=== PATIENT | female | born 1995 | race Caucasian/White ===

== ENCOUNTER → 2017-09-06 | Outpatient (CLI) | payer OTHER ==
--- NOTE | 2017-09-06 19:14 | Diagnostic Imaging Report ---
INDICATION: Size and dates. OB sonography is performed in the routine fashion. Single live intrauterine fetus is seen measuring 9 weeks 2 days by crown-rump length with heart rate of 179 beats per minute. A normal-appearing yolk sac is visualized. The gestational sac has a normal ovoid contour. There is no overt subchorionic bleed. Sonographic EDC is 04/09/2018. Right ovary appears unremarkable. Left ovary could not be visualized. There is no free fluid. IMPRESSION: Single live intrauterine fetus measuring 9 weeks 2 days in size. There are no detectable abnormalities. Recommend follow-up later in for full anatomical survey. Dictated by: Dictated on workstation # [id number]
== END ==
LOC: RAD 10:49
PROVIDERS: ATTEND Family Medicine
DX: Z34.91 Encounter for supervision of normal pregnancy, unspecified, first trimester (principal); Z3A.09 9 weeks gestation of pregnancy
CPT/HCPCS: 76801